=== PATIENT | male | born 1935 | race Caucasian/White ===

== ENCOUNTER 2017-03-03 10:39 | Observation (INO) | payer MEDICARE ==
[2017-03-03 11:36] LABS: BASO # 0.05 K/mm3 (0.0-2.0); BASO % 0.7 % (0.0-3.0); EOS # 0.1 (0.0-0.7); EOS % 1.2 % (1.5-5.0); GRAN # 4.78 (1.4-6.5); GRAN % 70.2 % (50.0-68.0); LYMPH # 1.3 (1.2-3.4); LYMPH % 19.4 % (22.0-35.0); MEAN CELL VOLUME 92.6 fl (80.0-105.0); MEAN CORPUSCULAR HEMOGLOBIN 31.4 pg (25.0-35.0); MEAN CORPUSCULAR HGB CONC 33.9 g/dl (31.0-37.0); MEAN PLATELET VOLUME 11.6 fl (7.0-11.0); MONO # 0.6 (0.1-0.6); MONO % 8.5 % (1.0-6.0); RED CELL DISTRIBUTION WIDTH 13.3 % (11.5-14.5); WHITE BLOOD COUNT 6.8 10^3/ul (4.5-11.0)
[2017-03-03 11:50] LABS: ALB/GLOB RATIO 1.4 (1.1-1.8); ALKALINE PHOSPHATASE 55 U/L (38-126); ALT/SGPT 41 U/L (7-56); AST/SGOT 28 U/L (17-59); BILIRUBIN,TOTAL 0.6 mg/dL (0.2-1.3); BLOOD UREA NITROGEN 17 mg/dL (7-21); CALCIUM 9.3 mg/dL (8.4-10.5); CARBON DIOXIDE 25 mmol/L (21-33); CHLORIDE 105 mmol/L (98-107); GFR AFRICAN-AMERICAN > 60; GLUCOSE,RANDOM 92 mg/dL (70-110); MAGNESIUM 2.1 mg/dL (1.7-2.2); POTASSIUM 4.3 mmol/L (3.6-5.0); SODIUM 142 mmol/L (132-148); TOTAL PROTEIN 7.3 g/dL (5.8-8.3)
[2017-03-03 12:01] LABS: TROPONIN I < 0.01 ng/mL
--- NOTE | 2017-03-03 12:07 | ED PDOC ---
Arrival/HPI <David Strickland - Last Filed: 03/03/17 14:52> <Bernardo Rojo - Last Filed: 03/03/17 16:11> - General Chief Complaint: Dizziness/Lightheaded Time Seen by Provider: 03/03/17 11:06 - History of Present Illness Narrative History of Present Illness (Text): 03/03/17 11:52 81 year old patient with a PMH of HTN presents to the ED with CC of near syncope and headaches. The patient is accompanied by his son, who translated for the patient. The patient states that over the past month he has experienced multiple episodes of dizziness, in which the room was spinning and he felt like he was about to pass out. He has never had any LOC. These episodes happen randomly but he believes he was standing every time it has happened. He states that he is also experiencing worsening headaches over the previous month. He has had a history of headaches in the past but the headaches over the previous month are more debilitating and intense in nature. They can be located anywhere in his head. He has attempted to take Tramadol but it has not helped. He states the headaches can start at anytime and slowly progress throughout the day. Patient states that he had one episode of a sudden onset headache 3 weeks ago, in which he experienced the inability to speak along with numbness and tingling in his right arm and leg. He has experienced the numbness in right arm a couple times since the event 3 weeks ago, but it is not associated with every headache. He has been experiencing blurred vision in both eyes on multiple occasions over the past month. He denies any f/c, n/v, d/c, sob or cp. PMH: HTN, Osteoarthritis PSH: none Family: unknown Social: former smoker (quit 30 years ago), denies alcohol/illicit drug use Allergies: NKDA (David Strickland) Associated Symptoms (Text): 03/03/17 12:17 Seen and examined with the resident. Our history and physical exam reveals an elderly gentleman who complains of chronic headaches which have become worse over the last month. There has also been some dizziness and some numbness of the right upper and right lower extremity. No weakness. No difficulty with ADLs. The son translates. No chest pain or palpitations. No dyspnea. No nausea or vomiting. No fever. No trauma. His exam is unrevealing, including a full neuro exam. (Bernardo Rojo) Past Medical History - Provider Review Nursing Documentation Reviewed: Yes - Cardiac Hx Cardiac Disorders: Yes Hx Hypertension: Yes - Pulmonary Hx Respiratory Disorders: No - Neurological Hx Neurological Disorder: No - HEENT Hx HEENT Disorder: No - Renal Hx Renal Disorder: No - Endocrine/Metabolic Hx Endocrine Disorders: No - Hematological/Oncological Hx Blood Disorders: No - Integumentary Hx Dermatological Disorder: No - Musculoskeletal/Rheumatological Hx Musculoskeletal Disorders: No Hx Arthritis: No - Gastrointestinal Hx Gastrointestinal Disorders: No - Genitourinary/Gynecological Hx Genitourinary Disorders: No - Psychiatric Hx Psychophysiologic Disorder: No Hx Substance Use: No <David Strickland - Last Filed: 03/03/17 14:52> Family/Social History - Physician Review Nursing Documentation Reviewed: Yes Family/Social History: Unknown Family HX Smoking Status: Never Smoked Hx Alcohol Use: No Hx Substance Use: No <David Strickland - Last Filed: 03/03/17 14:52> Allergies/Home Meds <Dvaid Strickland - Last Filed: 03/03/17 14:52> <Bernardo Rojo - Last Filed: 03/03/17 16:11> Allergies/Adverse Reactions: Allergies No Known Allergies Allergy (Verified 03/03/17 10:50) Home Medications: Home Meds Medication Instructions Recorded Confirmed Losartan [Cozaar] 50 mg PO DAILY 03/03/17 03/03/17 Review of Systems - Review of Systems Constitutional: Normal. absent: Fevers Eyes: Vision Changes (blurred vision b/l). absent: Photophobia, Eye Pain ENT: absent: Hearing Changes, Tinnitus Respiratory: absent: SOB, Cough, Wheezing Cardiovascular: Palpitations. absent: Chest Pain, Calf Pain, Syncope (near syncope) Gastrointestinal: absent: Abdominal Pain, Constipation, Diarrhea, Nausea, Vomiting Genitourinary Male: absent: Dysuria Musculoskeletal: Normal. absent: Back Pain Skin: absent: Rash, Pruritis Neurological: Headache, Focal Weakness (right arm and right leg), Speech Changes (inability to speak/slurred speech 3 weeks ago) Endocrine: absent: Diaphoresis Hemo/Lymphatic: Normal Psychiatric: Normal <David Strickland - Last Filed: 03/03/17 14:52> - Physician Review All systems were reviewed & negative as marked: Yes <Bernardo Rojo - Last Filed: 03/03/17 16:11> Physical Exam Vital Signs Reviewed: Yes Temperature: Afebrile Blood Pressure: Hypertensive Pulse: Regular Respiratory Rate: Normal Appearance: Positive for: Well-Appearing, Non-Toxic, Comfortable Pain Distress: None Mental Status: Positive for: Alert and Oriented X 3 Finger Stick Blood Glucose: 90 - Systems Exam Head: Present: Atraumatic, Normocephalic. No: Tenderness Pupils: Present: PERRL Extroacular Muscles: Present: EOMI Conjunctiva: Present: Normal Mouth: Present: Moist Mucous Membranes, Normal Tounge. No: Drooling Nose (External): Present: Atraumatic. No: Abrasion Nose (Internal): Present: Normal Inspection, No Active Bleeding, Moist Neck: Present: Normal Range of Motion. No: Paraspinal Tenderness, JVD Respiratory/Chest: Present: Clear to Auscultation. No: Respiratory Distress, Accessory Muscle Use, Wheezes, Retracting, Rhonchi, Tachypneic Cardiovascular: Present: Regular Rate and Rhythm, Normal S1, S2 Abdomen: No: Tenderness, Distention, Peritoneal Signs Upper Extremity: Present: Normal Inspection, Normal ROM, NORMAL PULSES, Neurovascularly Intact, Capillary Refill < 2s. No: Edema Lower Extremity: Present: Normal Inspection, NORMAL PULSES, Neurovascularly Intact. No: Edema, CALF TENDERNESS Neurological: Present: GCS=15, CN II-XII Intact, Motor Func Grossly Intact (5/5 strength UE b/l; 5/5 strength LE b/l), Normal Cerebellar Funct (finger to nose - normal; heel to barr - normal) Skin: Present: Warm, Dry, Normal Color. No: Rashes Psychiatric: Present: Alert, Oriented x 3, Normal Insight, Normal Concentration <David Strickland - Last Filed: 03/03/17 14:52> Medical Decision Making <David Strickland - Last Filed: 03/03/17 14:52> <Bernardo Rojo - Last Filed: 03/03/17 16:11> ED Course and Treatment: 03/03/17 12:12 Near Syncope - r/o [place] vs arrhythmia vs Stroke vs TIA vs brain bleed - Head CT w/o - No acute intracranial findings. Age-appropriate age related neuro degenerative changes are identified. - EKG - NSR @ 77bpm; Left [place] deviation; otherwise normal EKG - CXR - No active disease - Troponin <0.01 - CBC/CMP - unremarkable Dispo: admit to telemetry for observation. (David Strickland) 03/03/17 12:23 Patient Seen With Resident: In agreement with resident note and more details are present in their notes. Patient was seen and evaluated with resident, came up with plan and treatment together. 03/03/17 14:10 Discussed with who is covering for and will admit to telemetry on 's service and consult with cardiology and neurologyDr Escobar. 03/03/17 14:25 Discussed with silverio Caldwell. 03/03/17 16:[address] Bassett in the ER. (Bernardo Rojo) - Lab Interpretations Lab Results: 03/03/17 10:55 03/03/17 10:55 Lab Results 03/03/17 10:55: Sodium 142, Potassium 4.3, Chloride 105, Carbon Dioxide 25, Anion Gap 16, BUN 17, Creatinine 0.9, Est GFR ( Amer) > 60, Est GFR (Non- Af Amer) > 60, Random Glucose 92, Calcium 9.3, Phosphorus 3.0, Magnesium 2.1, Total Bilirubin 0.6, AST 28, ALT 41, Alkaline Phosphatase 55, Troponin I < 0.01 , Total Protein 7.3, Albumin 4.2, Globulin 3.1, Albumin/Globulin Ratio 1.4 03/03/17 10:55: WBC 6.8, RBC 4.97, Hgb 15.6, Hct 46.0, MCV 92.6, MCH 31.4, MCHC 33.9, RDW 13.3, Plt Count 161, MPV 11.6 H, Gran % 70.2 H, Lymph % (Auto) 19.4 L , [place] % (Auto) 8.5 H, Eos % (Auto) 1.2 L, Baso % (Auto) 0.7, Gran # 4.78, Lymph # 1.3, [place] # 0.6, Eos # 0.1, Baso # 0.05 - RAD Interpretation Radiology Orders: 03/03/17 11:25 HEAD W/O CONTRAST [CT] Stat 03/03/17 11:33 CXR [CHEST PORTABLE] [RAD] Stat - Medication Orders Current Medication Orders: Aspirin (Aspirin Chewable) 81 mg PO DAILY LORENZA Losartan Potassium (Cozaar) 50 mg PO DAILY LORENZA Last Admin: 03/03/17 15:28 Dose: 50 mg Discontinued Medications Aspirin (Aspirin Chewable) 81 mg PO STAT STA Stop: 03/03/17 15:20 Last Admin: 03/03/17 15:28 Dose: 81 mg Disposition/Present on Arrival - Present on Arrival Any Indicators Present on Arrival: No History of DVT/PE: No History of Uncontrolled Diabetes: No Urinary Catheter: No History of Decub. Ulcer: No History Surgical Site Infection Following: None - Disposition Have Diagnosis and Disposition been Completed?: Yes Patient Plan: Observation, Telemetry <David Strickland - Last Filed: 03/03/17 14:52> - Present on Arrival Any Indicators Present on Arrival: No History of DVT/PE: No History of Uncontrolled Diabetes: No Urinary Catheter: No History of Decub. Ulcer: No - Disposition Have Diagnosis and Disposition been Completed?: Yes Disposition Time: 14:11 Patient Plan: Observation, Telemetry <Bernardo Rojo - Last Filed: 03/03/17 16:11> - Disposition Diagnosis: Headache, Near syncope Disposition: HOSPITALIZED Patient Problems: Current Active Problems Problem Status Onset Headache Acute Near syncope Acute Condition: GOOD
--- NOTE | 2017-03-03 12:31 | CT ---
PROCEDURE: CT HEAD WITHOUT CONTRAST. HISTORY: near syncope, blurry vision COMPARISON: None available. TECHNIQUE: Axial computed tomography images were obtained through the head/brain without intravenous contrast. Radiation dose: Total exam DLP = 689 mGy-cm. This CT exam was performed using one or more of the following dose reduction techniques: Automated exposure control, adjustment of the mA and/or kV according to patient size, and/or use of iterative reconstruction technique. FINDINGS: HEMORRHAGE: No intracranial hemorrhage. BRAIN: No mass effect or cortical edema. Diffuse cerebral atrophy and chronic microangiopathy are manifest by scattered white matter lucency throughout the cerebrum and expansion of the ventricular sulcal and cisternal spaces diffusely. Midline brain and appears normal including the corpus callosum and the craniocervical junction. VENTRICLES: Unremarkable. No hydrocephalus. CALVARIUM: Unremarkable. PARANASAL SINUSES: Unremarkable as visualized. No significant inflammatory changes. MASTOID AIR CELLS: Unremarkable as visualized. No inflammatory changes. OTHER FINDINGS: None. IMPRESSION: No acute intracranial findings by standard CT criteria. Age-appropriate age related neuro degenerative changes are identified as discussed above.
--- NOTE | 2017-03-03 12:42 | RAD ---
HISTORY: near syncope COMPARISON: No prior. FINDINGS: LUNGS: No active pulmonary disease. PLEURA: No significant pleural effusion identified, no pneumothorax apparent. CARDIOVASCULAR: Normal. OSSEOUS STRUCTURES: No significant abnormalities. VISUALIZED UPPER ABDOMEN: Normal. OTHER FINDINGS: None. IMPRESSION: No active disease.
--- NOTE | 2017-03-03 16:05 | MRI ---
PROCEDURE: MRI BRAIN WITHOUT CONTRAST HISTORY: headache dizziness and extremity numbness. COMPARISON: None. TECHNIQUE: Multiplanar, multisequence MR images of the brain were obtained without intravenous contrast enhancement. FINDINGS: HEMORRHAGE: None DWI: No evidence of an acute or early subacute infarction. BRAIN PARENCHYMA: No mass effect or edema. Minimal chronic microvascular changes are seen. Mild atrophy VENTRICLES: Unremarkable. No hydrocephalus. CRANIUM: Unremarkable. ORBITS: Grossly unremarkable. PARANASAL SINUSES/MASTOIDS: Clear VASCULAR SYSTEM: Skull base flow voids intact. OTHER FINDINGS: None. IMPRESSION: No acute findings
--- NOTE | 2017-03-03 17:05 | CARD ---
APPROVED REPORT EKG Measurement Heart [id number] <Conclusion> Normal sinus rhythm Possible Left atrial enlargement Borderline ECG
--- NOTE | 2017-03-03 18:49 | CON ---
DATE: 03/03/2017 CHIEF COMPLAINT: Headache and dizziness. HISTORY OF PRESENT ILLNESS: This is an 81-year-old man with history of hypertension, osteoarthritis, who has been having dizziness intermittently for the past few days, mentioned that dizziness is more of a room spinning and felt generally weak and was going to pass out. No nausea. No vomiting. No focal weakness of the extremities. He has been having diffuse frontal pressure headache without any auras. There is some paresthesias radiating down the right arm and leg which has been going on intermittently for the past 3 weeks. He said he has lot of tension, but no otherwise aggravating factors. He was a former smoker, but quit smoking 30 years ago. He experienced intermittent blurry vision on multiple occasions in the past month. His blood pressure has been slightly elevated systolically and diastolically, but currently his lab works are unremarkable. His CAT scan of the head and MRI of the brain showed no acute intracranial abnormalities. His neuro exam is nonfocal at this point. PAST MEDICAL HISTORY: History of hypertension, osteoarthritis. ALLERGIES: NO KNOWN DRUG ALLERGIES. SOCIAL HISTORY: Former smoker, quit 30 years ago. No illicit drug use or EtOH abuse. FAMILY HISTORY: Noncontributory. MEDICATION: Reviewed by nurse per reconciliation sheet. REVIEW OF SYSTEMS: A 14-point review of systems is negative except as per the HPI. PHYSICAL EXAMINATION VITAL SIGNS: Temperature of 97.7, pulse rate 60, blood pressure 151/87, respiratory rate of 18, oxygen saturation 100% via room air. GENERAL: The patient is sitting up in bed, in no acute distress. HEENT: Head is atraumatic and normocephalic. PERRLA. Extraocular muscles intact. NECK: Supple. No JVD. No adenopathy noted. LUNGS: Clear to auscultation. No adventitious sounds. HEART: S1 and S2, normal rate and rhythm. No murmurs, rubs, or gallops. ABDOMEN: Soft, nontender, nondistended. Bowel sounds are present. EXTREMITIES: No clubbing. No cyanosis. Peripheral pulses are 2+ felt bilaterally. NEUROLOGIC: The patient is alert and oriented to person, place, month and year. Speech is fluent without any errors. Cranial nerves II through XII intact. Motor exam: Moves all extremities equally. Toes downgoing bilaterally. Sensory exam: Light touch, pinprick, proprioception, vibration is intact. Coordination: Ozhvua-wv-gvex intact. Gait is deferred for now. LABORATORY DATA: Sodium is 142, potassium 4.2, chloride 105, carbon dioxide 25, BUN of 17, creatinine 0.9, random glucose 92. ASSESSMENT AND PLAN: This is an 81-year-old man with history of hypertension, osteoarthritis, who has been having dizziness in terms of spinning sensation of the room, also with headaches diffuse frontal pressure type with transient right arm and right leg weakness that is intermittently for the past 3 weeks with these headaches. Currently, his neuro exam is nonfocal. His MRI of the brain showed no acute intracranial abnormality. At this time, he is having a complicated migraine, which is mostly attention based headache superimposed underlying mild increase in his systolic blood pressures. At this time, his symptoms are currently resolved. Recommend him to be on: 1. Aspirin 81 mg. 2. Gabapentin 300 mg p.o. at bedtime for headache prevention. 3. He does have symptoms of positional vertigo; therefore, we will recommend outpatient vestibular therapy and he can follow up with me in my office as an outpatient. Patient is stable at this standpoint. Thank you for this consult. Ori Paz MD
[2017-03-03 21:10] VITALS: BMI 23.6
[2017-03-03] MEDS ORDERED: Pneumococcal 23-Valent Vaccine IM ONE (21:10)
[2017-03-04 00:51] VITALS: RESP 20
[2017-03-04 06:03] VITALS: BP 123/74; TEMP 97.7; O2SAT 98
--- NOTE | 2017-03-04 08:32 | CP.PCM.PN ---
Subjective - Date & Time of Evaluation Date of Evaluation: 03/04/17 Time of Evaluation: 08:00 - Subjective Subjective: (covering for Dr. Hugo) Patient is seen this morning. He complained of a headache last night, but says it improved with Tylenol. He admits to having frequent headaches, however. He denies dizziness this morning. Objective - Vital Signs/Intake and Output Vital Signs (last 24 hours): Temp Pulse Resp BP Pulse Ox 97.7 F 67 20 123/74 98 03/04/17 06:00 03/04/17 06:00 03/04/17 06:00 03/04/17 06:00 03/04/17 06:00 Intake and Output: 03/04/17 03/04/17 06:59 18:59 Intake Total 600 Balance 600 - Medications Medications: Current Medications Acetaminophen (Tylenol 325mg Tab) 650 mg PO Q6H PRN PRN Reason: Pain, Mild (1-3) Last Admin: 03/03/17 19:10 Dose: 650 mg Aspirin (Aspirin Chewable) 81 mg PO DAILY LORENZA Gabapentin (Neurontin) 300 mg PO HS LORENZA PRN Reason: Protocol Losartan Potassium (Cozaar) 50 mg PO DAILY LORENZA Last Admin: 03/03/17 15:28 Dose: 50 mg - Constitutional Appears: No Acute Distress - Head Exam Head Exam: ATRAUMATIC, NORMOCEPHALIC - Respiratory Exam Respiratory Exam: Clear to Ausculation Bilateral, NORMAL BREATHING PATTERN - Cardiovascular Exam Cardiovascular Exam: +S1, +S2 - GI/Abdominal Exam GI & Abdominal Exam: Soft, Normal Bowel Sounds. absent: Tenderness - Neurological Exam Neurological Exam: Alert, Awake, Oriented x3 Assessment and Plan - Assessment and Plan (Free Text) Assessment: Near syncope HTN Migraine Plan: Patient has been evaluated by the neurologist, Dr. Paz. MRI Brain shows chronic microvascular changes and mild atrophy. No acute changes. Patient suffering from complicated migraine and started on neurontin at night as per neurology. Awaiting cardiology evaluation and echocardiogram
[2017-03-04 10:40] LABS: BASO # 0.02 K/mm3 (0.0-2.0); BASO % 0.4 % (0.0-3.0); EOS # 0.1 (0.0-0.7); EOS % 0.9 % (1.5-5.0); GRAN # 3.79 (1.4-6.5); GRAN % 71.8 % (50.0-68.0); HEMATOCRIT 47.7 % (42.0-52.0); LYMPH % 19.7 % (22.0-35.0); MEAN CELL VOLUME 92.3 fl (80.0-105.0); MEAN CORPUSCULAR HEMOGLOBIN 30.9 pg (25.0-35.0); MEAN CORPUSCULAR HGB CONC 33.5 g/dl (31.0-37.0); MEAN PLATELET VOLUME 11.3 fl (7.0-11.0); MONO # 0.4 (0.1-0.6); MONO % 7.2 % (1.0-6.0); RED CELL DISTRIBUTION WIDTH 13.3 % (11.5-14.5); WHITE BLOOD COUNT 5.3 10^3/ul (4.5-11.0)
[2017-03-04 10:45] LABS: ALB/GLOB RATIO 1.3 (1.1-1.8); ALKALINE PHOSPHATASE 55 U/L (38-126); ALT/SGPT 39 U/L (7-56); AST/SGOT 25 U/L (17-59); BILIRUBIN,TOTAL 0.7 mg/dL (0.2-1.3); BLOOD UREA NITROGEN 16 mg/dL (7-21); CALCIUM 9.2 mg/dL (8.4-10.5); CARBON DIOXIDE 27 mmol/L (21-33); CHLORIDE 102 mmol/L (98-107); GFR AFRICAN-AMERICAN > 60; GLUCOSE,RANDOM 121 mg/dL (70-110); POTASSIUM 4.3 mmol/L (3.6-5.0); SODIUM 140 mmol/L (132-148); TOTAL PROTEIN 7.4 g/dL (5.8-8.3)
[2017-03-04 10:51] VITALS: PULSE 62
--- NOTE | 2017-03-04 11:09 | CARD ---
APPROVED REPORT EXAM: Two-dimensional and M-mode echocardiogram with Doppler and color Doppler. INDICATION 2D DIMENSIONS IVSd1.3 (0.7-1.1cm)LVDd4.6 (3.9-5.9cm) PWd1.2 (0.7-1.1cm)LVDs2.9 (2.5-4.0cm) FS (%) 37.6 %LVEF (%)67.7 (>50%) M-Mode DIMENSIONS Left Atrium (MM)3.30 (2.5-4.0cm)Aortic Root2.90 (2.2-3.7cm) Aortic Cusp Exc.1.70 (1.5-2.0cm) Aortic Valve AoV Peak Muvqplxt244.0cm/Fátima Peak GR.7mmHg Mitral Valve MV E Ntvkmzbl42.9cm/sMV E Peak Gr.123mmHgMV A Ssgxqeid04.6cm/s E/A ratio0.7 TDI Lateral E' Peak V8.58cm/sMedial E' Peak V5.95cm/sE/Lateral E'5.7 E/Medial E'8.2 Tricuspid Valve TR Peak Ozuljjfl963ty/sRAP [id number] Peak Gr.19mmHg [id number] LEFT VENTRICLE The left ventricle is normal size. There is mild concentric left ventricular hypertrophy. The left ventricular function is normal. The left ventricular ejection fraction is within the normal range. There is normal LV segmental wall motion. RIGHT VENTRICLE The right ventricle is normal size. The right ventricular systolic function is normal. ATRIA The left atrium size is normal. The right atrium size is normal. The interatrial septum is intact with no evidence for an atrial septal defect. AORTIC VALVE The aortic valve is mildly thickened. There is trace aortic regurgitation. There is no aortic valvular stenosis. MITRAL VALVE The mitral valve is normal in structure. Mitral regurgitation is mild. TRICUSPID VALVE The tricuspid valve is normal in structure. There is mild tricuspid regurgitation. PULMONIC VALVE The pulmonary valve is normal in structure. GREAT VESSELS The aortic root is normal in size. The IVC is normal in size and collapses >50% with inspiration. PERICARDIAL EFFUSION There is no pleural effusion. There is no pericardial effusion. <Conclusion> Normal chamber size. Normal LV systolic funciton. Mild concentric LVH. Midl MR and TR.
--- NOTE | 2017-03-04 15:59 | CON ---
DATE: 03/04/2017 CARDIOLOGY CONSULTATION HISTORY OF PRESENT ILLNESS: The patient is an 81-year-old male who presents with dizziness. His dizziness is completely resolved now. The patient's past medical history is free of cardiac disease. No previous myocardial infarction. He does suffer from hypertension, which he is on losartan 50 daily. No diabetes mellitus. SOCIAL HISTORY: The patient is a former smoker and since stopped. REVIEW OF SYSTEMS: A 14-point review of systems was reviewed in detail. No cardiac symptomatology noted. PHYSICAL EXAMINATION: VITAL SIGNS: Blood pressure is 123/74. There are no orthostatic changes, heart rate is in the 60s. NECK: Negative JVD. LUNGS: Without rales. HEART: Reveals S1, S2 without a systolic murmur. EXTREMITIES: Without edema. LABORATORY DATA: The hemoglobin is 15.6. Chemistries: First troponin is negative. EKG is unremarkable. The echocardiogram is pending. IMPRESSION: 1. Transient dizziness. 2. Hypertension. 3. No evidence for acute coronary syndrome. 4. No physical exam evidence for aortic stenosis or left ventricular outflow obstruction. PLAN: Given these findings, we will decrease his losartan dose. We will await for the echocardiographic results and the rest of his chemistry panels. Gary Stallings MD
--- NOTE | 2017-03-08 11:29 | CP.PCM.HP ---
History of Present Illness - History of Present Illness History of Present Illness: Covering for Dr. Hugo This is an 81 year old male with history of hypertension, who presented to the Emergency Room for near syncope. Patient has had multiple episodes over the past month of dizziness and feeling as if he was going to pass out. He also complains of headaches from time to time. Patient says he had an episode about 3 weeks ago where his right arm and leg felt numb. He denies numbness or slurred speech today. Present on Admission - Present on Admission Any Indicators Present on Admission: No Review of Systems - Cardiovascular Cardiovascular: absent: Chest Pain, Diaphoresis, Dyspnea - Gastrointestinal Gastrointestinal: absent: Abdominal Pain, Vomiting - Neurological Neurological: As Per HPI Past Patient History - Past Social History Smoking Status: Never Smoked - CARDIAC Hx Cardiac Disorders: Yes Hx Hypertension: Yes - PULMONARY Hx Respiratory Disorders: No - NEUROLOGICAL Hx Neurological Disorder: No - HEENT Hx HEENT Problems: No - RENAL Hx Chronic Kidney Disease: No - ENDOCRINE/METABOLIC Hx Endocrine Disorders: No - HEMATOLOGICAL/ONCOLOGICAL Hx Blood Disorders: No - INTEGUMENTARY Hx Dermatological Problems: No - MUSCULOSKELETAL/RHEUMATOLOGICAL Hx Musculoskeletal Disorders: No Hx Arthritis: No - GASTROINTESTINAL Hx Gastrointestinal Disorders: No - GENITOURINARY/GYNECOLOGICAL Hx Genitourinary Disorders: No - PSYCHIATRIC Hx Psychophysiologic Disorder: No Hx Substance Use: No - SURGICAL HISTORY Hx Surgeries: No Meds Allergies/Adverse Reactions: Allergies Allergy/AdvReac Type Severity Reaction Status Date / Time No Known Allergies Allergy Verified 03/03/17 17:42 Physical Exam - Constitutional Appears: No Acute Distress - Head Exam Head Exam: ATRAUMATIC, NORMOCEPHALIC - Respiratory Exam Respiratory Exam: Clear to Auscultation Bilateral, NORMAL BREATHING PATTERN - Cardiovascular Exam Cardiovascular Exam: +S1, +S2 - GI/Abdominal Exam GI & Abdominal Exam: Normal Bowel Sounds, Soft. absent: Tenderness - Extremities Exam Extremities exam: Positive for: normal inspection - Neurological Exam Neurological exam: Alert Results - Vital Signs Recent Vital Signs: Last Vital Signs Temp 97.7 F 03/03/17 15:07 Pulse 69 03/03/17 15:07 Resp 16 03/03/17 15:07 BP 148/76 03/03/17 15:07 Pulse Ox 100 03/03/17 15:07 - Labs Result Diagrams: 03/04/17 10:30 09/02/17 10:30 Assessment & Plan - Assessment and Plan (Free Text) Assessment: Near syncope HTN Plan: Patient with episode of near syncope and possible TIA in the past. Neurology and cardiology consultations have been requested Patient will continue Losartan for blood pressure. Start ASA
--- NOTE | 2017-03-09 05:42 | DS ---
BRIEF HISTORY: This is an 81-year-old male with history of hypertension, who presented to the emergency room with near syncope. The patient has had multiple episodes over the past month of dizziness and feeling as if he was going to pass out. He also complained of having headaches from time to time. He says he had an episode about 3 weeks ago, where his right arm and left leg felt numb. On the day of admission, he denied numbness or slurred speech. HOSPITAL COURSE: Patient was placed in observation on the telemetry unit. Neurology and cardiology consultations were requested. Patient was continued on losartan for blood pressure and started on baby aspirin 81 mg daily. The neurologist ordered an MRI of the brain which did not show any acute findings, just minimal chronic microvascular changes and mild atrophy. Dr. Paz, the neurologist, did not recommend any further workup but did note that the patient had symptoms of positional vertigo, for which he could follow up with him as an outpatient for vestibular therapy. In addition, he diagnosed migraine in the patient and recommended that he start Neurontin 300 mg at bedtime. An echocardiogram was done, which showed normal chamber size, normal LV function , mild concentric LVH, mild MR and tricuspid regurgitation. Patient was evaluated by a manager multicultural. Due to dizziness, his losartan dose was decreased to 25 mg. Since no further workup was necessary, the patient's son wanted to take him home. The patient was discharged home in improved condition. He will follow up with his primary care doctor, Dr. Marshall. DISCHARGE DIAGNOSES: Near syncope, migraine, hypertension. DISCHARGE MEDICATIONS: Losartan 25 mg once a day, Aspirin 81 mg daily. FOLLOWUP: Patient will follow up with his primary care doctor to discuss starting Neurontin. He will also follow up with the neurologist for possible positional vertigo and migraine. Marilia Ramos MD [facility]
== END 2017-03-04 14:02 | disposition home or self-care (01) ==
LOC: ED 10:39 → MERGE 14:09 → ERH 14:09 → 2RSO 17:23
PROVIDERS: ADMIT Internal Medicine; ATTEND Internal Medicine
DX: G43.109 Migraine with aura, not intractable, without status migrainosus (principal); R55 Syncope and collapse; I10 Essential (primary) hypertension; R42 Dizziness and giddiness; M19.90 Unspecified osteoarthritis, unspecified site; Z87.891 Personal history of nicotine dependence
CPT/HCPCS: 36415; 70450; 70551; 71010; 80053; 82948; 83735; 84100; 84484; 85025; 93005; 93306; 99285; G0378